=== PATIENT | female | born 1990 | race Caucasian/White ===

== ENCOUNTER 2016-03-27 07:24 | Day surgery (SDC) | payer OTHER ==
[~2016-03-27] VITALS: Ht 160 cm; Wt 98.4 kg
[2016-03-27] MEDS ORDERED: IBUPROFEN (08:08)
[2016-03-27] MEDS ORDERED: OMEPRAZOLE (08:08)
[2016-03-27 08:09] VITALS: Ht 160 cm; Wt 98.4 kg
[2016-03-27 08:31] VITALS: BP 118/78; PULSE 90; RESP 18
[2016-03-27] MEDS ORDERED: LIDOCAINE 2% (SDV) 5 ML INJ ONE (08:34)
[2016-03-27] MEDS ORDERED: PROPOFOL 40 ML ONE (08:34)
[2016-03-27] MEDS ORDERED: PROPOFOL 20 ML ONE (08:47)
[2016-03-27 09:43] VITALS: BP 117/67; PULSE 77; RESP 24
--- NOTE | 2016-03-27 11:39 | GILP ---
DATE OF PROCEDURE: NAME OF PROCEDURES: 1. Esophagogastroduodenoscopy and biopsy. 2. Colonoscopy and biopsy. SURGEON: Sharon Ontiveros MD PREOPERATIVE DIAGNOSES: 1. Abdominal pain. 2. Chronic diarrhea. POSTOPERATIVE DIAGNOSES: 1. Gastroesophageal reflux disease. 2. Gastritis with erosions. 3. Gastric mucosal biopsies were taken for Helicobacter pylori test. 4. Small bowel biopsies were taken to rule out celiac disease. 5. Colonoscopy all the way to the cecum. 6. Internal hemorrhoids. 7. Random biopsies were taken to rule out microscopic colitis. INDICATION FOR THE PROCEDURE: Ms. Jillian Miller is a 25-year-old female patient who had upper abdo elisabeth pain and chronic heartburn, not responding to therapy. The patient also had chronic diarrhea, so the patient was scheduled for endoscopy and colonoscopy for further evaluation. The procedures and possible complications are well explained to the patient and she understood and c onsented to the procedure. DESCRIPTION OF PROCEDURE: Under the influence of anesthesia, the gastroscope was carefully introduc ed into the esophagus and under direct vision, it was advanced to the stomach and through the pyloru s into the duodenal bulb and descending duodenum. FINDINGS: ESOPHAGUS: The patient had gastroesophageal reflux disease. STOMACH: She had gastritis with erosions. Gastric mucosal biopsies were taken for H. pylori test. DUODENUM: Normal. Small bowel biopsies were taken to rule out celiac disease. The colonoscope was carefully introduced in the rectum and under direct vision, it was advanced all the way to the cecum. FINDINGS: The patient had internal hemorrhoids. Random biopsies were taken to rule out microscopic colitis. She tolerated the procedures very well and there was no complication from the procedures. At the en d of the procedures, she was awake with stable vital signs and she was discharged home to the [facility] o f her family. IMPRESSION: Please see postoperative diagnosis. PLAN: 1. Omeprazole 40 mg p.o. q.a.m. 2. Zantac 300 mg p.o. at bedtime. 3. Bentyl 10 mg p.o. t.i.d. p.r.n. for pain or diarrhea. 4. Await histopathology reports. Dictated By: SHARON JORDAN/MIKE Conf#: [id number] DID#: [id number]
== END 2016-03-27 11:12 | disposition home or self-care (01) ==
LOC: GIL 07:24
PROVIDERS: ATTEND Internal Medicine Gastroenterology
DX: K21.9 Gastro-esophageal reflux disease without esophagitis (principal); K29.60 Other gastritis without bleeding; K64.8 Other hemorrhoids; E66.9 Obesity, unspecified; Z68.38 Body mass index [BMI] 38.0-38.9, adult
CPT/HCPCS: 43239; 45380; 84703; 87081; 88305; 88312; Z7610

== ENCOUNTER 2016-12-04 10:24 | Day surgery (SDC) | payer OTHER ==
[2016-12-04] VITALS (12 sets, daily range): BP systolic 99–117; BP diastolic 53–79; PULSE 74–98; RESP 12–23; Ht 162.6 cm; Wt 98.0 kg
[~2016-12-04] VITALS: Ht 162.6 cm; Wt 98.0 kg
[~2016-12-04 10:24] MED LIST: IBUPROFEN; OMEPRAZOLE
[2016-12-04] MEDS ORDERED: ATOR20TA38 PO (10:55)
[2016-12-04] MEDS ORDERED: ERGO500037 PO (10:56)
[2016-12-04] MEDS ORDERED: TOPI25CA2 PO (10:59)
[2016-12-04] MEDS ORDERED: PHEN30CA2 PO (11:00)
[2016-12-04] MEDS ORDERED: BUPIVACAINE 0.5% (SDV) 30 ML INJ ONE (11:35)
[2016-12-04] MEDS ORDERED: DEXAMETHASONE 4 MG/ML 1 ML INJ ONE (11:36)
[2016-12-04] MEDS ORDERED: POVIDONE IODINE 10% 28.4 GM OINT ONE (11:36)
[2016-12-04] MEDS ORDERED: EPHEDrine SULFATE 50 MG/5 ML SYG IV PRN (12:30)
[2016-12-04] MEDS ORDERED: FENTAnyl 50 MCG/ML VIAL IV PRN ×3 (12:30)
[2016-12-04] MEDS ORDERED: MEPERIDINE 25 MG INJ IV PRN (12:30)
[2016-12-04] MEDS ORDERED: MIDAZOLAM 1 MG/ML 2 ML INJ IV PRN (12:30)
[2016-12-04] MEDS ORDERED: LABETALOL HCL 20MG INJ IV PRN (12:30)
[2016-12-04] MEDS ORDERED: hydrALAzine 20 MG INJ IV PRN (12:30)
[2016-12-04] MEDS ORDERED: ONDANSETRON 4 MG INJ IV PRN (12:30)
[2016-12-04] MEDS ORDERED: METOCLOPRAMIDE 10 MG INJ IV PRN (12:30)
[2016-12-04] MEDS ORDERED: DIPHENHYDRAMINE 50 MG INJ IV PRN (12:30)
[2016-12-04] MEDS ORDERED: LIDOCAINE 2% (SDV) 5 ML INJ ONE (12:44)
[2016-12-04] MEDS ORDERED: PROPOFOL 20 ML ONE (12:44)
[2016-12-04] MEDS ORDERED: ONDANSETRON 4 MG INJ ONE (12:46)
[2016-12-04] MEDS ORDERED: MEPERIDINE 100 MG INJ ONE (12:46)
[2016-12-04] MEDS ORDERED: METOCLOPRAMIDE 10 MG INJ ONE (12:46)
--- NOTE | 2016-12-04 12:49 | HPN ---
Date/Time of Note Date/Time of Note DATE: 12/04/16 TIME: 12:48 Interval H&P Admission Note Pt. seen H&P reviewed: No system changes HILTON CUEVAS DPM Dec 04, 2016 12:49
--- NOTE | 2016-12-04 13:38 | SIPON ---
Date/Time of Note Date/Time of Note DATE: 12/04/16 TIME: 13:35 Operative Report Preoperative Diagnosis Preop diagnosis is exostosis fourth and exostosis fifth digits on the left foot Postoperative Diagnosis Postop diagnosis is the same Operation/Procedure Performed Procedure is partial ostectomy fourth digit left foot partial ostectomy fifth digit left foot Surgeon: HILTON CUEVAS DPM Anesthesia Type: general Estimated Blood Loss: minimal Transfusion Required: no Specimens Bone paste Grafts/Implants: none Complications: no HILTON CUEVAS DPM Dec 04, 2016 13:38
--- NOTE | 2016-12-04 18:05 | PREOPHP ---
DATE OF ADMISSION: 12/04/2016 INDICATION: The patient is being admitted to the hospital for elective foot surgery. The patient has been explained surgery, complications, alternatives, and elected to have elective foot surgery. The patient has pain between the 4th and 5th digits. ALLERGIES: AUGMENTIN, BACTRIM, KEFLEX, CLINDAMYCIN, CODEINE, TYLENOL. CURRENT MEDICATIONS: Lipitor. REVIEW OF SYSTEMS: Denies heart, lung, liver, kidney, and thyroid problems. Denies diabetic problems. SOCIAL HISTORY: Smoking 4-5 cigarettes per day. Alcohol only socially. PHYSICAL EXAMINATION: See any other previous upper extremity physical exam and history, Dr. Fairchild. Lower extremity physical examination shows a DP and PT, equal and regular. NEUROLOGICAL: Negative for pathology. DERMATOLOGICAL: Shows a lesion on medial 5th lateral and 4th digits on the left foot. MUSCULOSKELETAL: X-ray shows exostosis 4th and exostosis 5th, left foot. FINAL DIAGNOSIS: 1. Exostosis medial aspect, fifth, left foot. 2. Exostosis, lateral aspect, fourth, left foot. Dictated By: Emeka Ca DPM /jocelyn/fahad /Document#: [id number]
--- NOTE | 2016-12-04 19:17 | OPR ---
DATE OF OPERATION: 12/04/2016 SURGEON: Emeka Ca DPM PREOPERATIVE DIAGNOSIS: Exostosis medial aspect fifth left foot. Exostosis, lateral aspect fourth left foot. POSTOPERATIVE DIAGNOSIS: Exostosis medial aspect fifth left foot. Exostosis, lateral aspect fourth left foot. OPERATION PERFORMED: Partial ostectomy on the fourth left foot and partial ostectomy of the fifth left foot. OPERATIVE PROCEDURE: The patient was brought to the surgical suite, placed in supine position. The patient was under general anesthesia. The patient had a sterile prep and drape. Findings were consistent with the pre and postop diagnosis. The first incision was a dorsal longitudinal incision on the fifth digit, using sharp and blunt dissection. The incision was carried deep. The exostosis on the medial aspect on the fifth digit was freed of its attachment and resected. The area was cleansed in the preoperative condition having been cleansed, finish. It was coaptated using #5-0 nylon. The next incision was a dorsal longitudinal incision on fourth digit. Using sharp and blunt dissection the incision was made deeper, and the exostosis on the lateral aspect of the fourth digit was made, and the exostosis was freed and resected. The area was cleansed. The preoperative condition having been relieved. The area was then coaptated using #5-0 nylon. Both fourth and fifth toes were injected with 0.5 percent Marcaine and dressings of half-inch Steri-Strips, Betadine ointment, 4x4s impregnated with Betadine solution and Ramone made into a semi-compressive dressing were applied. The patient tolerated surgery well, and was returned to recovery room in satisfactory condition. Dictated By: Emeka Ca DPM /jocelyn/shalini /Document#: [id number]
== END 2016-12-04 15:25 | disposition home or self-care (01) ==
LOC: SDS 10:24
PROVIDERS: ATTEND Podiatrist
DX: M89.9 Disorder of bone, unspecified (principal); E78.5 Hyperlipidemia, unspecified; F17.210 Nicotine dependence, cigarettes, uncomplicated; Z68.37 Body mass index [BMI] 37.0-37.9, adult; E66.01 Morbid (severe) obesity due to excess calories; Z88.6 Allergy status to analgesic agent; Z88.1 Allergy status to other antibiotic agents; Z88.5 Allergy status to narcotic agent; Z88.2 Allergy status to sulfonamides; Z88.8 Allergy status to other drugs, medicaments and biological substances
CPT/HCPCS: 28124; 84703; 88304; J2175; J2405; Z7512; Z7610; J1100; J2765